=== PATIENT | male | born 1965 | race African-American/Black ===

== ENCOUNTER 2024-09-23 00:28 | Emergency (ER) | payer OTHER ==
[~2024-09-23] VITALS: Ht 175.3 cm; Wt 77.0 kg
[2024-09-23 00:29] VITALS: BP 187/100; PULSE 66; RESP 16; TEMP 98.4; O2SAT 100
[2024-09-23] MEDS ORDERED: MORPHINE SULFATE 4 MG/ML INJ (FOR IV/IM USE) IV STA (01:26)
[2024-09-23] MEDS ORDERED: ONDANSETRON HCL 4MG/2ML INJ IV STA (01:26)
[2024-09-23] MEDS ORDERED: SODIUM CHLORIDE 0.9% 1,000 ML IV ONE (01:30)
== END 2024-09-23 03:16 | disposition left against medical advice (07) ==
LOC: ER 00:28
DX: M79.605 Pain in left leg (principal); M79.604 Pain in right leg; Z53.21 Procedure and treatment not carried out due to patient leaving prior to being seen by health care provider
CPT/HCPCS: J7030